=== PATIENT | male | born 1970 | race Caucasian/White ===

== ENCOUNTER 2018-01-10 17:55 | Emergency (ER) | payer SELFPAY ==
[~2018-01-10] VITALS: Ht 175.3 cm; Wt 77.0 kg
[2018-01-10 17:58] VITALS: BP 128/92
== END 2018-01-10 21:15 | disposition left against medical advice (07) ==
LOC: ER 18:37
DX: S09.8XXA Other specified injuries of head, initial encounter (principal); M54.2 Cervicalgia; M79.632 Pain in left forearm; B20 Human immunodeficiency virus [HIV] disease; Y08.89XA Assault by other specified means, initial encounter; Y93.89 Activity, other specified; Y92.9 Unspecified place or not applicable; Z88.1 Allergy status to other antibiotic agents; Z88.2 Allergy status to sulfonamides; Z88.3 Allergy status to other anti-infective agents
CPT/HCPCS: 99284